=== PATIENT | male | born 1955 | race Two or more races ===

== ENCOUNTER 2024-08-28 11:00 | Emergency (ER) | payer OTHER, SELFPAY ==
[2024-08-28 11:02] VITALS: BMI 18.2
[2024-08-28 11:21] VITALS: BP 127/84; PULSE 76; RESP 18; TEMP 36.8; O2SAT 96
--- NOTE | 2024-08-28 11:38 | XR_ITS ---
Examination: Abdomen AP single view Technique: AP portable supine abdomen, single view Exam date and time: August 28, 2024 at 1207 hours Indications: No bowel movement 3 days with abdominal pain FINDINGS: Moderate to large amounts of stool throughout the colon. No obstruction. No free air IMPRESSION: Moderate to large amounts of stool throughout the colon Minimal small bowel ileus
--- NOTE | 2024-08-28 11:44 | EDNOTE_ITS ---
ED Abdominal Pain RME/HPI General Chief Complaint: Abdominal Pain Stated complaint: ABDOMINAL PAIN NO BM TIMES 3 DAYS Time seen by provider: 08/28/24 11:19 Arrival date/time: 08/28/24 11:00 69-year-old male with no known medical history presents to the emergency room with a chief complaint of abdominal pain. Patient states he has not had a bowel movement in the last 3 days. Source: patient Mode of arrival: ambulatory Limitations: no limitations Related Data Previous Rx's ?Medication ?Instructions ?Recorded dicyclomine 20 mg tablet 20 mg PO TID PRN pain #30 ta bs 12/13/23 pantoprazole 40 mg tablet,delayed 40 mg PO QDAY #30 ta bs 12/13/23 release (Protonix) Allergies Allergy/AdvReac Type Severity Reaction Status Date / Time No Known Allergies Allergy Verified 08/28/24 11:04 Review of Systems Review of Systems Systems Reviewed: All systems reviewed, normal except as documented Constitutional Constitutional: Reports system reviewed and no additional complaints, except as documented, Denies fatigue, Denies fever(s), Denies headache(s) and Denies weakness Eyes Eyes: Reports system reviewed and no additional complaints, except as documented, Denies blurry vision and Denies change in vision ENT Ears, Nose, Mouth, and Throat: Reports system reviewed and no additional complaints, except as documented, Denies otalgia, Denies headache(s), Denies nasal congestion, Denies throat swelling and Denies vertigo Cardiovascular Cardiovascular: Reports system reviewed and no additional complaints, except as documented, Denies chest pain, Denies dyspnea and Denies dyspnea on exertion Respiratory Respiratory: Reports system reviewed and no additional complaints, except as documented, Denies chest congestion, Denies cough, Denies dyspnea, Denies dyspnea on exertion and Denies wheezing Gastrointestinal Gastrointestinal: Reports system reviewed and no additional complaints, except as documented, Reports abdominal pain, Reports cramping, Reports nausea and Denies vomiting Genitourinary Genitourinary: Reports system reviewed and no additional complaints, except as documented, Denies dysuria and Denies hematuria Musculoskeletal Musculoskeletal: Reports system reviewed and no additional complaints, except as documented and Denies back pain Integumentary/Breasts Skin/Breast: Reports system reviewed and no additional complaints, except as documented and Denies wounds Neurologic Neurologic: Reports system reviewed and no additional complaints, except as documented, Denies confusion, Denies headache(s), Denies lack of coordination, Denies vertigo and Denies weakness Psychiatric Psychiatric: Reports system reviewed and no additional complaints, except as documented, Denies anxiety, Denies confusion, Denies depression, Denies paranoia, Denies suicidal ideation and Denies tactile hallucinations Endocrine Endocrine: Reports system reviewed and no additional complaints, except as documented and Denies fatigue Hematologic/Lymphatic Hematologic/Lymphatic: Reports system reviewed and no additional complaints, except as documented and Denies lymphadenopathy Allergic/Immunologic Allergic/Immunologic: Reports system reviewed and no additional complaints, except as documented, Denies throat swelling, Denies urticaria and Denies wheezing Past Medical History Past Medical History CARDIAC: Positive Hypertension; Negative Cardiac Disorders or Congestive Heart Failure RESPIRATORY: Negative Chronic Obstructive Pulmonary Disease (COPD) or Asthma GENITOURINARY: Negative Renal Disease ENDOCRINE: Positive Diabetes Mellitus Type 2; Negative Diabetes Mellitus Type 1 HEMATOLOGIC: Negative Sickle Cell Disease Social History SMOKING STATUS: Never smoker ED Exam General Limitations: Present no limitations General appearance: Present alert and in no apparent distress Head Head exam: Present atraumatic Eye Eye exam: Present normal appearance, PERRL and EOMI ENT ENT exam: Present normal exam, normal oropharynx and mucous membranes moist Neck Neck exam: Present normal inspection, full ROM and trachea midline Chest Chest inspection: Present normal inspection and symmetric chest wall rise Respiratory Respiratory exam: Present normal lung sounds bilaterally Cardiovascular Cardiovascular exam: Present regular rate, normal rhythm and normal heart sounds Abdominal Exam Abdominal exam: Present soft, tenderness and normal bowel sounds; Absent Gross's sign or tenderness at McBurney's Point Abdominal tenderness: Present suprapubic and mild; Absent RUQ or RLQ Extremities Exam Extremities exam: Present normal inspection and full ROM Back Exam Back exam: Present normal inspection and full ROM Neurological Exam Neurological exam: Present alert, oriented X3 and CN II-XII intact Psychiatric Psychiatric exam: Present normal affect and normal mood Skin Skin exam: Present warm, dry, intact and normal color Course Quality Measures none Orders Category Date Time Status Enema Administration NOW Care 08/28/24 12:58 Active XR abdomen 1V Stat Exams 08/28/24 11:38 Completed CBC Stat Lab 08/28/24 11:47 Completed CMP [Comprehensive Metabolic Panel] Stat Lab 08/28/24 11:47 Completed Lipase Stat Lab 08/28/24 11:47 Completed Magnesium Citrate Liqd [Citrate of Magnesia Liqd] Med 08/28/24 11:47 Discontinued 300 ml PO X1 ONE Vital Signs Vital signs: Vital Signs Temperature 98.2 F 08/28/24 11:21 Pulse Rate 76 08/28/24 11:21 Respiratory Rate 18 08/28/24 11:21 Blood Pressure 127/84 08/28/24 11:21 Pulse Oximetry (%) 96 08/28/24 11:21 Oxygen Delivery Method Room Air 08/28/24 11:21 Abdominal Pain MDM MDM Narrative MDM Narrative:: 69-year-old male with no known medical history presents to the emergency room with a chief complaint of abdominal pain. Patient states he has not had a bowel movement in the last 3 days. Patient is hemodynamically stable and in no apparent distress Physical examination shows some tenderness to the suprapubic area of the patient's abdomen. The patient does not have any right upper quadrant or right lower quadrant abdominal tenderness. There is a negative Gross sign and there is no tenderness to McBurney's point. The patient is afebrile not tachycardic not tachypneic. Patient denies any vomiting or diarrhea. X-ray of the abdomen was completed and shows moderate to large amount of stool throughout the colon. An enema was given to the patient and the patient had a bowel movement with significant improvement to his symptoms Patient was discharged and educated to follow-up with primary care provider in the next 24 to 48 hours and return to the emergency room for any evidence of worsening signs or symptoms Patient data External records reviewed:: [facility] previous records Clinical information provided by:: patient Social determinants that could affect healthcare access:: none Patient has the following chronic illnesses:: No chronic illness How is presenting disease/condition affected by chronic disease/condition?: no chronic disease Evaluation data The following diagnostics were reviewed and interpreted by me:: lab results and radiology exam(s) Lab and/or radiology exams considered but not ordered:: Labs and radiology exams considered in order Interpretation Summary: X-ray abdomen-FINDINGS: Moderate to large amounts of stool throughout the colon. No obstruction. No free air IMPRESSION: Moderate to large amounts of stool throughout the colon Minimal small bowel ileus Medications / Prescriptions Medications or Prescriptions considered but not ordered:: Medication given Medication administrations:: Medication Administration History Discontinued Medications Magnesium Citrate (Magnesium Citrate 300 Ml Btl) 300 ml PO X1 ONE Stop: 08/28/24 11:48 Last Admin: 08/28/24 11:51 Dose: 300 ml Documented By: EF Medication given Consultations Consultation(s) initiated? (list below): No Diagnosis Differential diagnosis abdominal pain: abdominal pain, constipation, gastroenteritis and small bowel obstruction Most likely diagnosis given after review of the tests above:: Constipation Admission Indicated Admission indicated?: not indicated Admission Request Was there a request for admission?: No Disposition Plan Disposition Plan: Discharge Discharge Attestation Discharge Attestation: The patient and all family members were given an opportunity to ask questions and understood the discharge instructions. Discharge instructions specifically effects, indications for sooner follow up or return to the emergency department, and the expected course of current diagnosis. Patient condition: Stable Discharge Plan Plan Patient Disposition: HOME (Self Care) Discharge Disposition comment: Stable Prescriptions/Referrals Prescriptions/Med Rec: No Action pantoprazole [Protonix] 40 mg tablet,delayed release (DR/EC) 40 mg PO QDAY Qty: 30 0RF dicyclomine 20 mg tablet 20 mg PO TID PRN (Reason: pain) Qty: 30 0RF Referrals: No Primary/Family,Physician [Primary Care Provider] - In 1 week Problem List Clinical Impression: Constipation Patient/Caregiver Discharge Instructions Education Materials: Treating Constipation, Eating a High-Fiber Diet, ED C onstipation (Adult) Additional Instructions: Por favor, consulte con mahoney m?dico de cabecera en las pr?ximas 24 a 48 horas. Se le administr? medicaci?n cuando tuvo pratima evacuaci?n intestinal con pratima mejor?a significativa de cesar s?ntomas. Si hay alguna evidencia de empeoramiento de los signos o s?ntomas, regrese a la delmi de emergencias inmediatamente. Print Language: Welsh Stand Alone Forms: [employer] Award Info., Patient Portal Info Letter PA/[employer] Supervising Physician PA/[employer] Supervising Physician: Dr. Swenson
[2024-08-28] MEDS: MAGNESIUM CITRATE 300 ML BTL PO (11:51)
[2024-08-28 12:07] LABS: Basophils # (Auto) 0.1 Thou/mm3 (0.0-0.2); Basophils % (Auto) 1 % (0-2.5); Eosinophils # (Auto) 0.1 Thou/mm3 (0.0-0.5); Eosinophils % (Auto) 2 % (0-10); Hematocrit 45.4 % (41.0-53.0); Hemoglobin 15.9 g/dL (13.5-16.0); Immature Granulocytes Auto 0.01 Thou/mm3 (0.00-0.00); Lymphocytes # (Auto) 2.6 Thou/mm3 (1.0-4.8); Lymphocytes % (Auto) 29 % (10-50); Mean Corpuscular HGB Conc 35.0 g/dl (31.0-37.0); Mean Corpuscular Hemoglobin 29.3 pg (25.0-35.0); Mean Corpuscular Volume 84 fL (80-100); Monocytes # (Auto) 0.6 Thou/mm3 (0.0-0.8); Monocytes % (Auto) 7 % (0-12); Neutrophils # (Auto) 5.8 Thou/mm3 (1.8-7.7); Neutrophils % (Auto) 62 % (37-80); Nucleated Red Blood Cell # 0.00 Thou/mm3 (0.00-0.00); Nucleated Red Blood Cell % 0 /100 WBC (0); Platelet Count 261 Thou/mm3 (140-440); RDW Standard Deviation 37.2 fL (35.1-43.9); Red Blood Count 5.43 Miln/mm3 (4.50-5.90); White Blood Count 9.3 Thou/mm3 (3.8-10.6)
[2024-08-28 12:44] LABS: Alanine Aminotransferase 13 U/L (10-49); Albumin, Serum 4.2 gm/dL (3.4-4.8); Albumin/Globulin Ratio 1.4 (1.2-2.2); Alkaline Phosphatase 131 U/L (46-116); Anion Gap 6 (7-16); Aspartate Amino Transferase 13 U/L (0-34); BUN/Creatinine Ratio 8 Ratio (12-20); Bilirubin,Total 0.7 mg/dL (0.3-1.2); Blood Urea Nitrogen 8 mg/dL (9-23); Calcium 9.2 mg/dL (8.3-10.6); Calcium (Corrected) 9.2 mg/dL (8.5-10.1); Carbon Dioxide 28.6 mMol/L (20.0-31.0); Chloride 102 mMol/L (98-107); Creatinine (Component) 1.0 mg/dL (0.6-1.3); Estimated Creatinine Clearance 54.4 mL/min (>60); Globulin 3.0 gm/dL (2.3-3.5); Glucose 389 mg/dL (74-106); Lipase 35 U/L (12-53); Osmolality,Calculated 288 (275-295); Potassium 3.9 mMol/L (3.4-5.1); Sodium 137 mMol/L (136-145); Total Protein 7.2 gm/dL (5.7-8.2); eGFR > 60 See Note
== END 2024-08-28 14:59 | disposition home or self-care (01) ==
PROVIDERS: Nurse Practitioner Family; Emergency Provider Family Medicine
DX: K59.00 Constipation, unspecified (principal); K56.7 Ileus, unspecified
CPT/HCPCS: 36415; 74018; 80053; 83690; 85025; 99283; A9270